=== PATIENT | male | born 1990 | race Two or more races ===

== ENCOUNTER 2023-08-16 09:33 | Outpatient (AMB) | payer OTHER, SELFPAY ==
[2023-08-16 09:30] VITALS: BP 108/70; PULSE 59; RESP 14; TEMP 36.4; O2SAT 99; BMI 28.7
--- NOTE | 2023-08-16 09:30 | MHC.PC.OV ---
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 Accompanied by: Self / Same As Patient Allergies No Known Allergies Allergy (Verified 08/16/23 09:49) Medication List - Last Reconciled 08/16/23 by Kelsea Hernandez CNP No Known Home Meds Tobacco use date assessed: 08/16/23 Dental Screening Dental Screen Date: 08/16/23 Did you have a dental visit in the last 12 months?: No Did you have a dental problem in the last 6 months where you did not have access to dental care?: No Was dental information given to patient?: Patient has dentist HPI HPI Comments History of Present Illness Details New patient Prior PCP:?Does not recall recall name of PCP/practice Last office visit/CPE: About 5 years Acute issue(s): HLD -He has never been on medications Bilateral knee pain -Intermittent pain to both knees for the past 2 years. He notes that his knee pain is likely due to playing volleyball. He states that he experienced cramping from taking Ibuprofen. He no longer takes any pain medication. He does not like taking medications Low sex drive -No erectile dysfunction Anxious -Attributes to work stressors and having low sex drive. Sleep is sometimes an issue. His symptoms have been ongoing for about 3 years. He has never been evaluated for anxiety and depression Small, painless lesion to left axilla -He notes that the lesion has been present for 5 years. He was told by his PCP the lesion is a cyst. No h/o imaging He notes that he exercises regularly. He has not been making healthy dietary choices PMHx: HLD SurgHx: Appendectomy FHx: Mom: HTN, CHF. Dad: HTN & DM SocHx: Smokes 10 cigarettes daily and has been smoking for over 5 years. Drinks alcohol occasionally. Smokes or chew cannabis almost every night PFSH Medical History (Updated 08/16/23 @ 12:53 by Kelsea Hernandez CNP) No pertinent past medical history Surgical History (Updated 08/16/23 @ 09:44 by DENY Leary) Hx of appendectomy Family History (Updated 08/16/23 @ 09:45 by Lynn Hoyt [facility]) Maternal Grandmother Asthma High blood pressure High cholesterol Diabetes Cardiovascular disease Social History Housing: House Patient Tobacco Use Status: Current everyday Tobacco user Tobacco use type: Cigarette Cigarette Packs Per Day: 0.5 Cigarettes Per Day: 10 Years Smoked: 10 e-Cigarette/Vaping Use: Never Used service: No Current occupational status: employed 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 1. Little interest or pleasure in doing things: more than half the days 2. Feeling down, depressed, or hopeless: not at all 3. Trouble falling or staying asleep, or sleeping too much: more than half the days 4. Feeling tired or having little energy: not at all 5. Poor appetite or overeating: more than half the days 6. Feeling bad about yourself - or that you are a failure or have let yourself or your family down: more than half the days 7. Trouble concentrating on things, such as reading the newspaper or watching television: more than half the days 8. Moving or speaking so slowly that other people could have noticed. Or the opposite - being so fidgety or restless that you have been moving around a lot more than usual: several days 9. Thoughts that you would be better off or of hurting yourself in some way: not at all Total score: 11 Depression Screening Interpretation: Positive Depression Screening Follow-up: Community Mental Health Worker F/U Depression Screening Done: Yes 15013 - PHQ-9 Billing: Yes Source: Developed by Drs. Kenneth Parks, Annemarie Shelley, Solomon Rutherford and colleagues, with an educational anita from [employer] Thrive Questionnaire Date Thrive assessed: 08/16/23 I am a: Patient What is your living situation today?: I have a steady place to live Within the past 12 months, did the food you bought not last and you didn't have the money to get more?: Never true Within the past 12 months, did you worry whether your food would run out before you got money to buy more?: Never true Do you have trouble paying for medicines?: No Do you have trouble getting transportation to medical appointments?: No Do you have trouble paying your heating and electricity bill?: No Do you have trouble taking care of your child, family member or friend?: No Do you have trouble with day-to-day activities such as bathing, preparing meals, shopping, managing finances, etc.?: No Are you currently unemployed and looking for a job?: No Are you interested in more education?: No Please select the resources that you would like help with: None Currently or been in a relationship where the following occur: No concerns reported THRIVE Score: 0 AUDIT C Alcohol Use Questionnaire (AUDIT-C) 1. How often do you have a drink containing alcohol?: Monthly or less 2. How many drinks containing alcohol do you have on a typical day when you are drinking?: 1 or 2 3. How often do you have six or more drinks on one occasion?: Never Total Score: 1 TESSA-7 AMB Questionnaire TESSA-7 Date TESSA - 7 assessed: 08/16/23 Feeling nervous, anxious, or on edge: 0 = Not at all Not being able to stop or control worryin = More than half the days Worrying too much about different things: 2 = More than half the days Trouble relaxin = Several days Being so restless that it is hard to sit still: 2 = More than half the days Becoming easily annoyed or irritable: 1 = Several days Feeling afraid as if something awful might happen: 1 = Several days Total TESSA-7 score (0-4 normal; 5-9 mild; 10-14 moderate; 15-21 severe): 9 Source: Developed by Drs. Kenneth Parks, Annemarie Shelley, Solomon Rutherford and colleagues, with an educational anita from [employer] TESSA-7 Assessment Billing TESSA-7 Assessment Tool: TESSA-7 Assessment 47311 Review of Systems Const Details: Denies chills, Denies fatigue, Denies fever(s), Denies headache(s) and Denies weakness HEENT Denies change in vision, Denies dizziness, Denies headache(s), Denies hearing loss, Denies nasal congestion, Denies sinus pain, Denies sinus pressure and Denies sore throat Card Denies chest pain, Denies lightheadedness, Denies dyspnea and Denies other (palpitations) Resp Denies cough, Denies dyspnea and Denies wheezing GI Denies abdominal pain, Denies melena, Denies hematochezia, Denies change in bowel habits, Denies dyspepsia and Denies nausea Denies hematuria and Denies dysuria Musc Denies abnormal gait, Denies myalgias, Denies arthralgias, Denies numbness and Denies tingling Skin/Breast Denies rash, Denies unusual bruising and Denies wounds Neuro Denies abnormal gait, Denies dizziness, Denies headache(s), Denies memory loss, Denies numbness, Denies Sensory deficit (Neuro), Denies tingling and Denies weakness Psych Denies anxiety, Denies depression and Denies memory loss Endo Denies cold intolerance, Denies fatigue, Denies heat intolerance, Denies polydipsia and Denies polyuria Kev/Lymph Denies easy bleeding and Denies easy bruising Aller/Immun Denies wheezing Physical exam (Primary Care) Vital Signs: Last Vital Signs Temp 97.6 F 08/16/23 09:30 Pulse 59 08/16/23 09:30 Resp 14 08/16/23 09:30 BP 108/70 08/16/23 09:30 Pulse Ox 99 08/16/23 09:30 Oxygen Delivery Method Room Air 08/16/23 09:30 BMI result Body Mass Index 28.7 Tobacco/Smoking Status: Tobacco use Status Tobacco use date assessed 08/16/23 08/16/23 09:41 Patient Tobacco Use Status Current everyday Tobacco 08/16/23 09:41 Tobacco use type Cigarette 08/16/23 09:41 e-Cigarette/Vaping Use Never Used 08/16/23 09:41 PHQ-9: PHQ-9 Score PHQ-9: Total score 11 08/16/23 12:48 Depression Screening Interpretation: Positive Depression Screening Follow-up: Community Mental Health Worker F/U Thrive Assessment: Date of Thrive Assessment Date Thrive assessed 08/16/23 08/16/23 09:41 Currently or been in a relationship where the following occur: No concerns reported Const Other: General: no acute distress, well developed, alert and awake Nutritional Appearance: well nourished Orientation/consciousness: patient oriented x3 HENMT Head: Yes normocephalic and Yes atraumatic Ears: hearing grossly normal bilaterally and TM's normal bilaterally General nose exam: Normal external nose present and Normal nares present Mouth: Normal oral and palatal mucosa present and moist mucous membranes Teeth and gingiva: dentition normal Throat: Yes oropharynx normal Eyes Pupils: Equal, round and reactive pupils present and Pupil accommodation reflex normal EOM: EOMs intact bilaterally Neck Neck: Yes normal visual inspection, Yes no lymphadenopathy and Yes trachea midline Thyroid: Thyroid normal Carotids: no bruits Lymphatic: no lymphadenopathy noted Chest Chest palpation & inspection: normal inspection of the chest Resp Effort & Inspection: normal respiratory effort Auscultation: clear to auscultation bilaterally Cardio Rate: regular rate Rhythm: regular rhythm Heart sounds: S1 normal heart sound present, S2 normal heart sound present, no gallops, no murmurs and no rubs Bruits: no abdominal aortic bruits and no carotid bruits GI Palpation (GI): No Abdominal aortic bruit present, Soft to palpation, nontender, No hepatosplenomegaly present and No Rebound tenderness present Auscultation: normal bowel sounds General: Yes no CVA tenderness Back/Spine/Pelvis Back: no CVA tenderness Cervical Spine: cervical ROM normal and No Cervical spine tenderness Thoracic/Lumbar Spine: thoraco-lumbar ROM normal, No pain with thoraco-lumbar ROM, No thoracic spinal tenderness and No lumbar spinal tenderness Skin General: warm and dry. Normal skin color. Normal skin turgor Lesions: Small, painless lump to the right axilla, likely sebaceous cyst Rashes: no rashes Trauma: no lacerations or abrasions Wounds: no wounds Nails: normal Neuro General: patient oriented x3, gait normal and CN's II-XI intact bilaterally Cranial nerves: Yes Equal, round and reactive pupils present Cognition (Neuro): normal cognition Gait exam (Neuro): Normal gait present Motor exam (neuro): 5/5 motor strength present throughout Sensory Exam: No Sensory deficit (Neuro) Deep tendon reflexes (DTR's): Right patellar reflex intensity grade: 2+ and Left patellar reflex intensity grade: 2+ Extrem General: Yes normal to inspection, No edema and No calf tenderness Psych Appearance: grossly normal Affect: normal affect Attitude: cooperative Thought process: Normal thought process present Assessment and Plan Assessment & Plan (1) Normal physical examination, routine: Code(s): Z00.00 - Encounter for general adult medical examination without abnormal findings Plan: No significant physical restrictions limitations noted Healthy diet and routine exercise encouraged Encouraged to follow-up with his dentist for annual dental care Advised to get lab work done and follow-up in 3 weeks for anxiety, depression, and labs review Return sooner with symptoms or concerns Verbalized understanding and agreed with treatment plan (2) Hyperlipidemia: Code(s): E78.5 - Hyperlipidemia, unspecified Plan: He has history of elevated triglyceride, total cholesterol, and LDL levels; and low HDL level He has never been on medications Will check lipid panel and make changes as needed Advised to limit foods high in saturated fat and avoid foods high in trans fat Routine exercise encouraged Verbalized understanding and agreed with the plan (3) Chronic pain of both knees: Code(s): M25.561 - Pain in right knee; M25.562 - Pain in left knee; G89.29 - Other chronic pain Plan: Intermittent pain to both knees. No overt injury or trauma ROM within normal limits Will check ESR lab May take Tylenol as needed for pain or discomfort Warm compresses encouraged Follow-up with worsening or new symptoms Verbalized understanding and agreed with treatment plan (4) Decreased libido without sexual dysfunction: Code(s): R68.82 - Decreased libido Plan: Will check testosterone level (5) Anxiety and depression: Code(s): F41.9 - Anxiety disorder, unspecified; F32.A - Depression, unspecified Plan: Attributes to work stressors and having low sex drive. Sleep is sometimes an issue. His symptoms have been ongoing for about 3 years. He has never been evaluated for anxiety and depression TESSA-7 and TESSA-7 scores revealed mild anxiety and moderate depression respectively He is willing to start psychotherapy. He met with the [facility] who will refer him to a therapist May start medication if his symptoms persist or worsens Routine exercise encouraged Follow-up with symptoms or concerns Verbalized understanding and agreed with the treatment plan (6) Lump of axilla: Code(s): R22.30 - Localized swelling, mass and lump, unspecified upper limb Plan: Small, painless lump to the left axilla, likely sebaceous cyst Ultrasound ordered (7) Ready to quit smoking: Code(s): F17.200 - Nicotine dependence, unspecified, uncomplicated Plan: He smokes 10 cigarettes daily and has been smoking for over 5 years Instructed on the health risks and complications of cigarette smoking and encouraged to quit He is willing to start medication treatment for smoking cessation as recommended Will start nicotine patch. Advised to use as prescribed. Instructed on the risks, benefits, and potential adverse reactions of the medication. Advised to avoid smoking while using the patch Follow-up with symptoms or concerns Verbalized understanding and agreed with the treatment plan (8) Laboratory tests ordered as part of a complete physical exam (CPE): Code(s): Z00.00 - Encounter for general adult medical examination without abnormal findings Plan: Fasting labs ordered as part of a complete physical exam. Advised to fast for at least 10 hours before getting labs drawn. May drink water Verbalized understanding and agreed with treatment plan. Orders: Orders Lipid Panel Today Z00.00 - Encounter for general adult medical examination without abnormal findings UA CC w/rflx Micro + Cult Today Z00.00 - Encounter for general adult medical examination without abnormal findings Testosterone, Total Today R68.82 - Decreased libido Comprehensive [place]. Panel Fast Today Z00.00 - Encounter for general adult medical examination without abnormal findings Complete Blood Count Auto Diff Today Z00.00 - Encounter for general adult medical examination without abnormal findings TSH reflex Free T4 Today Z00.00 - Encounter for general adult medical examination without abnormal findings Erythrocyte Sedimentation Rate Today G89.29 - Other chronic pain, M25.561 - Pain in right knee, M25.562 - Pain in left knee US soft tiss head and/or neck Today R22.30 - Localized swelling, mass and lump, unspecified upper limb Medications: New nicotine transdermally daily; Apply 14 mg patch q.d. x6 weeks, then apply 7 mg patch q.d. x2 weeks: Info: Stop cigarette use at treatment onset 28 ea 0RF Coding Level of Care Code New Pt Level 4 (83934) New Pt Prev Care 18-39yr([id number] Diagnoses Normal physical examination, routine Z00.00 Hyperlipidemia E78.5 Chronic pain of both knees M25.561; M25.562; G89.29 Decreased libido without sexual dysfunction R68.82 Anxiety and depression F41.9; F32.A Lump of axilla R22.30 Ready to quit smoking F17.200 Laboratory tests ordered as part of a complete physical exam (CPE) Z00.00 Additional Codes TESSA-7 Assessment Billing - TESSA-7 Assessment Tool: TESSA-7 Assessment 46612 ([id number])
== END 2023-08-16 10:28 | disposition home or self-care (01) ==
PROVIDERS: Visit Provider Nurse Practitioner Family
DX: Z00.00 Encounter for general adult medical examination without abnormal findings (principal); E78.5 Hyperlipidemia, unspecified; M25.561 Pain in right knee; M25.562 Pain in left knee; G89.29 Other chronic pain; R68.82 Decreased libido; F41.9 Anxiety disorder, unspecified; F32.A Depression, unspecified; R22.30 Localized swelling, mass and lump, unspecified upper limb; F17.200 Nicotine dependence, unspecified, uncomplicated
CPT/HCPCS: 99204; 99385

== ENCOUNTER 2023-08-17 11:10 | Outpatient (REF) | payer OTHER, SELFPAY ==
[2023-08-17 11:38] LABS: MANUAL DIFF FLAG NO
[2023-08-17 12:12] LABS: Basophils Percent Auto 0.4 % (0-2); Eosinophils Absolute Auto 0.2 X10*3/uL (0.0-0.4); Eosinophils Percent Auto 2.5 % (0-4); Hematocrit 42.3 % (42.0-52.0); Hemoglobin 14.6 g/dl (14.0-18.0); Imm Gran Abs Auto 0.03 X10*3/uL (0.00-0.03); Imm Gran Pct Auto 0.4 % (0.0-0.4); Mean Corpuscular HGB Conc 34.5 g/dl (31.0-36.0); Mean Corpuscular Hemoglobin 31.1 pg (27.0-33.0); Mean Platelet Volume 11.3 fL (9.4-12.4); Monocytes Absolute Auto 0.3 X10*3/uL (0.1-1.2); Monocytes Percent Auto 4.7 % (2-11); Neutrophils Absolute Auto 3.7 x10*3/uL (2.0-8.3); Platelet Count 217 X10*3/uL (160-400); Red Cell Distribution Width 13.2 % (11.0-16.0); White Blood Count 7.3 X10*3/uL (4.8-10.8)
[2023-08-17 12:49] LABS: Appearance Urine Clear; Color Urine Yellow; Glucose Urine UA Negative (Negative); Leukocyte Esterase Urine Negative (Negative); Nitrite Urine Negative (Negative); PH 5.5 (5.0-9.0); Specific Gravity - Urine 1.025 (1.005-1.025); Urine Blood Negative (Negative); Urine Ketones Negative (Negative); Urine Protein Negative (Neg-Trace)
[2023-08-17 12:52] LABS: Erythrocyte Sedimentation Rate 2 MM/HR (0-15)
[2023-08-17 12:59] LABS: Alanine Aminotransferase 26 U/L (0-40); Albumin Level 4.6 g/dL (3.5-5.0); Alkaline Phosphatase 56 U/L (39-117); Anion Gap 11 (12-20); Aspartate Amino Transferase 11 U/L (5-37); Bilirubin Total 0.8 mg/dL (0.0-1.0); Blood Urea Nitrogen 16 mg/dL (9-16); Calcium 9.6 mg/dL (8.4-10.2); Carbon Dioxide 26 mmol/L (22-29); Chloride 106 mmol/L (96-108); Cholesterol 221 mg/dL (<200); Estimated Glomerular Filt Rate > 60; Glucose Fasting 99 mg/dL (60-99); HDL Cholesterol 38 mg/dL (>40); LDL Cholesterol Calculated 146 mg/dL (<100); Potassium 4.4 mmol/L (3.3-5.1); Sodium 139 mmol/L (135-145); Total Protein 7.6 g/dL (6.5-8.0); Triglycerides 188 mg/dL (<150)
[2023-08-17 13:00] LABS: TSH reflex Free T4 0.68 uIU/mL (0.32-4.0)
[2023-08-21 14:18] LABS: Testosterone, Total 422 ng/dL (250-1100)
== END 2023-08-17 11:11 | disposition home or self-care (01) ==
LOC: HO.LAB 11:10
PROVIDERS: PCP Nurse Practitioner Family; Visit Provider Nurse Practitioner Family
DX: Z00.00 Encounter for general adult medical examination without abnormal findings (principal); R68.82 Decreased libido; M25.561 Pain in right knee; M25.562 Pain in left knee; G89.29 Other chronic pain
CPT/HCPCS: 36415; 80053; 80061; 81003; 84403; 84443; 85025; 85652

== ENCOUNTER 2023-09-06 12:47 | Outpatient (REF) | payer OTHER, SELFPAY ==
--- NOTE | ~2023-09-06 | US_ITS ---
EXAMINATION: US EXTREMITY, NONVASCULAR CLINICAL INFORMATION: Localized swelling, mass and lump upper limb, left axilla. COMPARISON: None available. TECHNIQUE: Targeted ultrasound images were obtained by the mower sharpener of the area of concern as indicated by the patient in the left axilla. Radiologist was not in attendance. Images were later provided for interpretation. FINDINGS: A 1.3 x 0.7 x 0.9 cm complex, hypoechoic lesion with well-circumscribed hol[place] and no demonstrable internal vascularity is identified in the superficial soft tissues of the area of concern indicated by the patient in the left axilla. US/US extremity nonvascular IMPRESSION: A 1.3 cm complex, hypoechoic lesion with well-circumscribed holland and no demonstrable internal vascularity is identified in the superficial soft tissues of the area of concern indicated by the patient in the left axilla. Correlation with clinical exam recommended to determine further management.
== END 2023-09-06 12:48 | disposition home or self-care (01) ==
LOC: HO.US 12:47
PROVIDERS: PCP Nurse Practitioner Family; Visit Provider Nurse Practitioner Family
DX: R22.30 Localized swelling, mass and lump, unspecified upper limb (principal)
CPT/HCPCS: 76882

== ENCOUNTER 2023-09-07 11:33 | Outpatient (AMB) | payer OTHER, SELFPAY ==
--- NOTE | 2023-09-07 11:35 | A.OFFPC_ITS ---
Vital Signs 09/07/23 11:40 Height 5 ft 5 in Weight 176 lb 2 oz BMI 29.3 BP 110/78 Blood Pressure Location Lt brachial Position Sitting Respiration 16 Pulse 62 Pulse Source Pulse Oximeter Temp 97.7 F Temp Source Oral Pulse Oximetry (%) 98 Oxygen Delivery Method Room Air Intake Visit Reasons: 3 wks anxiety, depression, labs review Intake Note: patient here for 3 weeks follow on anxiety, depression and labs. 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 x6 weeks, then apply 7 mg patch q.d. x2 weeks: Info: Stop cigarette use at treatment onset Tobacco use date assessed: 09/07/23 Dental Screening Dental Screen Date: 09/07/23 Did you have a dental visit in the last 12 months?: No Did you have a dental problem in the last 6 months where you did not have access to dental care?: No Was dental information given to patient?: No (patient has a dentist) HPI HPI Comments History of Present Illness Details 33-year-old male presents for anxiety, d epression, and recent labs review follow-up He has not started to use nicotine because he was on vacation but plans to start the medication soon He notes that he just returned from vacation. He reports improved anxiety and depressive symptoms which he attributes to recent vacation and end of year at his work. He attributes most of his stress to work demands. He states that he was recently given a contact to connect with a therapist He notes that he eats fast foods every day No acute symptoms [facility] Medical History (Updated 08/16/23 @ 12:53 by Kelsea Hernandez CNP) No pertinent past medical history Surgical History (Updated 08/16/23 @ 09:44 by DENY Leary) Hx of appendectomy Family History (Updated 08/16/23 @ 09:45 by DENY Leary) Maternal Grandmother Asthma High blood pressure High cholesterol Diabetes Cardiovascular disease Social History Housing: House Patient Tobacco Use Status: Current everyday Tobacco user Tobacco use type: Cigarette Cigarette Packs Per Day: 0.5 Cigarettes Per Day: 10 Years Smoked: 10 e-Cigarette/Vaping Use: Never Used service: No Current occupational status: employed 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 1. Little interest or pleasure in doing things: nearly every day 2. Feeling down, depressed, or hopeless: more than half the days 3. Trouble falling or staying asleep, or sleeping too much: more than half the days 4. Feeling tired or having little energy: more than half the days 5. Poor appetite or overeating: not at all 6. Feeling bad about yourself - or that you are a failure or have let yourself or your family down: several days 7. Trouble concentrating on things, such as reading the newspaper or watching television: more than half the days 8. Moving or speaking so slowly that other people could have noticed. Or the opposite - being so fidgety or restless that you have been moving around a lot more than usual: not at all 9. Thoughts that you would be better off or of hurting yourself in some way: not at all Total score: 12 Depression Screening Interpretation: Positive Depression Screening Follow-up: Existing condition Depression Screening Done: Yes 85292 - PHQ-9 Billing: Yes Source: Developed by Drs. Kenneth Parks, Annemarie Shelley, Solomon Rutherford and colleagues, with an educational anita from [email or web address]. Thrive Questionnaire Date Thrive assessed: 08/16/23 AUDIT C Alcohol Use Questionnaire (AUDIT-C) 1. How often do you have a drink containing alcohol?: Monthly or less 2. How many drinks containing alcohol do you have on a typical day when you are drinking?: 1 or 2 3. How often do you have six or more drinks on one occasion?: Never Total Score: 1 Score Reviewed/Action Taken: Yes TESSA-7 AMB Questionnaire TESSA-7 Date TESSA - 7 assessed: 09/07/23 Feeling nervous, anxious, or on edge: 1 = Several days Not being able to stop or control worryin = More than half the days Worrying too much about different things: 2 = More than half the days Trouble relaxin = Several days Being so restless that it is hard to sit still: 2 = More than half the days Becoming easily annoyed or irritable: 2 = More than half the days Feeling afraid as if something awful might happen: 1 = Several days Total TESSA-7 score (0-4 normal; 5-9 mild; 10-14 moderate; 15-21 severe): 11 Source: Developed by Drs. Kenneth Parks, Annemarie Shelley, Solomon Rutherford and colleagues, with an educational anita from [email or web address]. TESSA-7 Assessment Billing TESSA-7 Assessment Tool: TESSA-7 Assessment 78209 Review of Systems Const Details: Const Denies chills, Denies fatigue, Denies fever(s), Denies headache(s) and Denies weakness ENT Denies dizziness and Denies headache(s) Card Denies chest pain, Denies lightheadedness, Denies dyspnea and Denies other (Palpitations) Resp Denies cough, Denies dyspnea, Denies wheezing and Denies other ( shortness of breath) GI Denies abdominal pain, Denies melena, Denies hematochezia, Denies change in bowel habits, Denies dyspepsia and Denies nausea Denies hematuria and Denies dysuria Musc Denies abnormal gait, Denies myalgias, Denies arthralgias, Denies numbness and Denies tingling Skin/Breast Denies rash, Denies unusual bruising and Denies wounds Neuro Denies abnormal gait, Denies dizziness, Denies headache(s), Denies memory loss, Denies numbness, Denies Sensory deficit (Neuro), Denies tingling and Denies weakness Psych Reports anxiety, Reports depression, Denies memory loss Endo Denies cold intolerance, Denies fatigue, Denies heat intolerance, Denies polydipsia and Denies polyuria Aller/Immun Denies wheezing Physical exam (Primary Care) Vital Signs: Last Vital Signs Temp 97.7 F 09/07/23 11:40 Pulse 62 09/07/23 11:40 Resp 16 09/07/23 11:40 BP 110/78 09/07/23 11:40 Pulse Ox 98 09/07/23 11:40 Oxygen Delivery Method Room Air 09/07/23 11:40 BMI result Body Mass Index 29.3 Tobacco/Smoking Status: Tobacco use Status Tobacco use date assessed 09/07/23 09/07/23 11:39 Patient Tobacco Use Status Current everyday Tobacco 09/07/23 11:39 Tobacco use type Cigarette 09/07/23 11:39 e-Cigarette/Vaping Use Never Used 09/07/23 11:39 PHQ-9: PHQ-9 Score PHQ-9: Total score 12 09/07/23 11:45 Depression Screening Interpretation: Positive Depression Screening Follow-up: Existing condition Thrive Assessment: Date of Thrive Assessment Date Thrive assessed 08/16/23 09/07/23 11:39 Const Other: General: no acute distress and well developed Nutritional Appearance: well nourished Orientation/consciousness: patient oriented x3 HENMT Head: Yes normocephalic and Yes atraumatic Eyes General: appearance normal, both eyes and all related structures Pupils: Equal, round and reactive pupils present EOM: EOMs intact bilaterally Resp Effort & Inspection: normal respiratory effort Auscultation: clear to auscultation bilaterally Cardio Rate: regular rate Rhythm: regular rhythm Heart sounds: S1 normal heart sound present, S2 normal heart sound present, no gallops, no murmurs and no rubs GI Palpation (GI): No Abdominal aortic bruit present, Soft to palpation, nontender, No hepatosplenomegaly present and No Rebound tenderness present Auscultation: normal bowel sounds General: Yes no CVA tenderness Back/Spine/Pelvis Back: no CVA tenderness Cervical Spine: cervical ROM normal and No Cervical spine tenderness Thoracic/Lumbar Spine: thoraco-lumbar ROM normal, No pain with thoraco-lumbar ROM, No thoracic spinal tenderness and No lumbar spinal tenderness Extrem General: Yes normal to inspection, No edema and No calf tenderness Skin General: warm and dry. Normal skin color. Normal skin turgor Neuro General: patient oriented x3, gait normal and no focal neuro deficit Cranial nerves: Yes Equal, round and reactive pupils present Cognition (Neuro): normal cognition Gait exam (Neuro): Normal gait present Sensory Exam: No Sensory deficit (Neuro) Psych Appearance: grossly normal Affect: normal affect Attitude: cooperative Thought process: Normal thought process present Assessment and Plan Assessment & Plan (1) Anxiety and depression: Code(s): F41.9 - Anxiety disorder, unspecified; F32.A - Depression, unspecified Plan: Reports improved anxiety and depressive symptoms since he got back from vacation and ended his work year PHQ-9 and TESSA-7 scores revealed moderate depression and anxiety Advised to contact a therapist as planned Routine exercise encouraged encouraged Follow-up in 2 months or sooner with worsening or new symptoms Verbalized understanding and agreed with treatment plan (2) Hyperlipidemia: Code(s): E78.5 - Hyperlipidemia, unspecified Plan: Recent labs reviewed with the patient. Unremarkable findings except for elevated triglycerides, total cholesterol, and LDL levels, 188, 221, and 146 respectively; HDL is slightly low, 38 Advised to limit foods high in saturated fat and avoid foods high in trans fat Routine exercise encouraged Advised to fast for 10-12 hours, may drink water only, and get lipid panel blood work done a few days before his next visit Follow-up in 2 months Verbalized understanding and agreed with the treatment plan (3) Ready to quit smoking: Code(s): F17.200 - Nicotine dependence, unspecified, uncomplicated Plan: He has not started to use nicotine because he was on vacation but plans to start the medication soon Smoking cessation encouraged Advised to start nicotine patch as prescribed Follow-up with symptoms or concerns Verbalized understanding and agreed with the plan (4) Lump of axilla: Code(s): R22.30 - Localized swelling, mass and lump, unspecified upper limb Plan: No acute symptoms He had ultrasound yesterday but pending results Orders: Orders Lipid Panel 2 Months E78.5 - Hyperlipidemia, unspecified Coding Level of Care Code Est Pt Level 4 (40209) Complex EM visit Add On G2211 Diagnoses Anxiety and depression F41.9; F32.A Hyperlipidemia E78.5 Ready to quit smoking F17.200 Lump of axilla R22.30 Additional Codes TESSA-7 Assessment Billing - TESSA-7 Assessment Tool: TESSA-7 Assessment 05276 ([id number])
[2023-09-07 11:40] VITALS: BP 110/78; PULSE 62; RESP 16; TEMP 36.5; O2SAT 98; BMI 29.3
== END 2023-09-07 12:16 | disposition home or self-care (01) ==
PROVIDERS: Visit Provider Nurse Practitioner Family
DX: E78.5 Hyperlipidemia, unspecified (principal); F41.9 Anxiety disorder, unspecified; F32.A Depression, unspecified; F17.210 Nicotine dependence, cigarettes, uncomplicated; R22.30 Localized swelling, mass and lump, unspecified upper limb
CPT/HCPCS: 99214

== ENCOUNTER 2023-11-15 12:23 | Outpatient (REF) | payer OTHER, SELFPAY ==
[2023-11-15 14:10] LABS: Cholesterol 224 mg/dL (<200); HDL Cholesterol 38 mg/dL (>40); LDL Cholesterol Calculated 147 mg/dL (<100); Triglycerides 197 mg/dL (<150)
[2023-11-16 08:44] LABS: HBc Num1 0.03 S/CO (0.00-0.79); HIV AB/AG Nonreactive (Nonreactive); HIV Num 1 0.06 S/CO (0.00-0.99); Hepatitis B Core Antibody Nonreactive (Nonreactive); Hepatitis B Surface Antigen Negative (Negative); ~HepC Num1 0.06 S/CO (0.00-0.79); ~Hepatitis B Surface Antibody REACTIVE (Nonreactive); ~Hepatitis C Antibody Nonreactive (Nonreactive)
[2023-11-16 08:53] LABS: Syphilis Screen Nonreactive (Nonreactive)
== END 2023-11-15 12:24 | disposition home or self-care (01) ==
LOC: HO.LAB 12:23
PROVIDERS: PCP Nurse Practitioner Family; Visit Provider Nurse Practitioner Family
DX: Z11.3 Encounter for screening for infections with a predominantly sexual mode of transmission (principal); E78.5 Hyperlipidemia, unspecified
CPT/HCPCS: 36415; 80061; 86704; 86706; 86780; 86803; 87340; 87389

== ENCOUNTER 2023-11-16 11:24 | Outpatient (AMB) | payer OTHER, SELFPAY ==
--- NOTE | 2023-11-16 11:33 | A.OFFPC_ITS ---
Vital Signs 11/16/23 11:38 Height 5 ft 5 in Weight 182 lb BMI 30.3 BP 118/68 Blood Pressure Location Rt brachial Position Sitting Respiration 14 Pulse 62 Pulse Source Pulse Oximeter Temp 97.6 F Temp Source Oral Pulse Oximetry (%) 98 Oxygen Delivery Method Room Air Intake Visit Reasons: mos HLD, anxiety, depression Intake Note: Patient here for follow up on anxiety and depression, also patient states that the cyst on his left under arm drain a week ago. Allergies No Known Allergies Allergy (Verified 11/16/23 11:38) Tobacco use date assessed: 09/07/23 Dental Screening Dental Screen Date: 11/16/23 Did you have a dental visit in the last 12 months?: Yes Did you have a dental problem in the last 6 months where you did not have access to dental care?: No Was dental information given to patient?: Patient has dentist HPI HPI Comments History of Present Illness Details 33-year-old male presents for anxiety, d epression, and hyperlipidemia follow-up He notes that he has been making healthy dietary changes; he has cut done on cheese and meat; he has also been cooking more and eating out less. 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 He did not call to make an appointment with a therapist He notes that the lesion to his left axilla started draining purulent drainage last week. No pain to the area. 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 1. Little interest or pleasure in doing things: more than half the days 2. Feeling down, depressed, or hopeless: several days 3. Trouble falling or staying asleep, or sleeping too much: nearly every day 4. Feeling tired or having little energy: nearly every day 5. Poor appetite or overeating: nearly every day 6. Feeling bad about yourself - or that you are a failure or have let yourself or your family down: several days 7. Trouble concentrating on things, such as reading the newspaper or watching television: more than half the days 8. Moving or speaking so slowly that other people could have noticed. Or the opposite - being so fidgety or restless that you have been moving around a lot more than usual: not at all 9. Thoughts that you would be better off or of hurting yourself in some way: not at all Total score: 15 Depression Screening Interpretation: Positive Depression Screening Follow-up: Existing condition and Declines treatment Depression Screening Done: Yes 68302 - PHQ-9 Billing: Yes Source: Developed by Drs. Kenneth Parks, Annemarie Shelley, Solomon Rutherford and colleagues, with an educational anita from [employer]. Thrive Questionnaire Date Thrive assessed: 08/16/23 TESSA-7 AMB Questionnaire TESSA-7 Date TESSA - 7 assessed: 11/16/23 Feeling nervous, anxious, or on edge: 1 = Several days Not being able to stop or control worryin = Several days Worrying too much about different things: 2 = More than half the days Trouble relaxin = Several days Being so restless that it is hard to sit still: 1 = Several days Becoming easily annoyed or irritable: 2 = More than half the days Feeling afraid as if something awful might happen: 0 = Not at all Total TESSA-7 score (0-4 normal; 5-9 mild; 10-14 moderate; 15-21 severe): 8 Source: Developed by Drs. Kenneth Parks, Annemarie Shelley, Solomon Rutherford and colleagues, with an educational anita from [employer]. TESSA-7 Assessment Billing TESSA-7 Assessment Tool: TESSA-7 Assessment 64581 Review of Systems Const Details: Const Denies chills, Denies fatigue, Denies fever(s), Denies headache(s) and Denies weakness ENT Denies dizziness and Denies headache(s) Card Denies chest pain, Denies lightheadedness, Denies dyspnea and Denies other (Palpitations) Resp Denies cough, Denies dyspnea, Denies wheezing and Denies other ( shortness of breath) GI Denies abdominal pain, Denies melena, Denies hematochezia, Denies change in bowel habits, Denies dyspepsia and Denies nausea Denies hematuria and Denies dysuria Musc Denies abnormal gait, Denies myalgias, Denies arthralgias, Denies numbness and Denies tingling Skin/Breast Denies rash, Denies unusual bruising and Denies wounds Neuro Denies abnormal gait, Denies dizziness, Denies headache(s), Denies memory loss, Denies numbness, Denies Sensory deficit (Neuro), Denies tingling and Denies weakness Psych Denies anxiety, Denies depression, Denies memory loss Endo Denies cold intolerance, Denies fatigue, Denies heat intolerance, Denies polydipsia and Denies polyuria Aller/Immun Denies wheezing Physical exam (Primary Care) Vital Signs: Last Vital Signs Temp 97.6 F 11/16/23 11:38 Pulse 62 11/16/23 11:38 Resp 14 11/16/23 11:38 BP 118/68 11/16/23 11:38 Pulse Ox 98 11/16/23 11:38 Oxygen Delivery Method Room Air 11/16/23 11:38 BMI result Body Mass Index 30.3 Tobacco/Smoking Status: Tobacco use Status Tobacco use date assessed 09/07/23 11/16/23 11:34 Patient Tobacco Use Status Current everyday Tobacco 11/16/23 11:34 Tobacco use type Cigarette 11/16/23 11:34 e-Cigarette/Vaping Use Never Used 11/16/23 11:34 PHQ-9: PHQ-9 Score PHQ-9: Total score 15 11/16/23 11:41 Depression Screening Interpretation: Positive Depression Screening Follow-up: Existing condition and Declines treatment Thrive Assessment: Date of Thrive Assessment Date Thrive assessed 08/16/23 11/16/23 11:34 Const Other: General: no acute distress and well developed Nutritional Appearance: well nourished Orientation/consciousness: patient oriented x3 HENMT Head: Yes normocephalic and Yes atraumatic Eyes General: appearance normal, both eyes and all related structures Pupils: Equal, round and reactive pupils present EOM: EOMs intact bilaterally Resp Effort & Inspection: normal respiratory effort Auscultation: clear to auscultation bilaterally Cardio Rate: regular rate Rhythm: regular rhythm Heart sounds: S1 normal heart sound present, S2 normal heart sound present, no gallops, no murmurs and no rubs GI Palpation (GI): No Abdominal aortic bruit present, Soft to palpation, nontender, No hepatosplenomegaly present and No Rebound tenderness present Auscultation: normal bowel sounds General: Yes no CVA tenderness Back/Spine/Pelvis Back: no CVA tenderness Extrem General: Yes normal to inspection, No edema and No calf tenderness Skin General: warm and dry. Normal skin color. Normal skin turgor Neuro General: patient oriented x3, gait normal and no focal neuro deficit Cranial nerves: Yes Equal, round and reactive pupils present Cognition (Neuro): normal cognition Gait exam (Neuro): Normal gait present Sensory Exam: No Sensory deficit (Neuro) Psych Appearance: grossly normal Affect: normal affect Attitude: cooperative Thought process: Normal thought process present Coding Level of Care Code Tele New Pt Level 4 (40871) Diagnoses Anxiety and depression F41.9; F32.A Hyperlipidemia E78.5 Lump of axilla R22.30 Additional Codes TESSA-7 Assessment Billing - TESSA-7 Assessment Tool: TESSA-7 Assessment 24841 ([id number]) Assessment & Plan Assessment & Plan (1) Anxiety and depression: Code(s): F41.9 - Anxiety disorder, unspecified; F32.A - Depression, unspecified Category: Medical Plan: Reports anxiety and depressive symptoms which he attributes to work-related demands PHQ-9 and TESSA-7 scores revealed moderately severe depression and mild anxiety respectively Declines medication treatment at this time. He also declines psychotherapy referral Routine exercise encouraged Follow-up with worsening or new symptoms Verbalized understanding and agreed with the treatment plan (2) Hyperlipidemia: Code(s): E78.5 - Hyperlipidemia, unspecified Category: Medical Plan: Recent triglycerides, total cholesterol, and LDL levels are increased, 197, 224, and 147 respectively; HDL level is low, 38 Declines medication treatment at this time Request dietitian referral to help with dietary changes [place] [facility] [place] Advised to fast for 10-12 hours, may drink water only, and get lipid panel blood work done a few days before his next visit Follow-up in 3 months Verbalized understanding and agreed with the plan (3) Lump of axilla: Code(s): R22.30 - Localized swelling, mass and lump, unspecified upper limb Category: Medical Plan: Large mass with slightly red head to the left axilla; small amount of purulent drainage expressed; no tenderness to palpation Warm compresses encouraged Referred to general surgery Follow-up as needed Verbalized understanding and agreed with the plan Orders: Referrals General Surgery Referral R22.30 - Localized swelling, mass and lump, unspecified upper limb Nutrition/Dietitian Referral E78.5 - Hyperlipidemia, unspecified
[2023-11-16 11:38] VITALS: BP 118/68; PULSE 62; RESP 14; TEMP 36.4; O2SAT 98; BMI 30.3
== END 2023-11-16 12:12 | disposition home or self-care (01) ==
PROVIDERS: PCP Nurse Practitioner Family; Visit Provider Nurse Practitioner Family
DX: F41.9 Anxiety disorder, unspecified (principal); F32.A Depression, unspecified; E78.5 Hyperlipidemia, unspecified; R22.30 Localized swelling, mass and lump, unspecified upper limb

== ENCOUNTER → 2023-11-16 11:24 | Outpatient (BNVA) | payer OTHER, SELFPAY | PROVIDERS: PCP Nurse Practitioner Family; Visit Provider Nurse Practitioner Family | DX: F41.9 Anxiety disorder, unspecified (principal); F32.A Depression, unspecified; E78.5 Hyperlipidemia, unspecified; R22.32 Localized swelling, mass and lump, left upper limb | CPT/HCPCS: 96127 ==

== ENCOUNTER 2023-12-06 08:29 | Outpatient (REF) | payer OTHER, SELFPAY | END 2023-12-06 08:30 | disposition home or self-care (01) | LOC: HO.LNP 08:29 | PROVIDERS: PCP Nurse Practitioner Family; Referring Provider Nurse Practitioner Family; Visit Provider Surgery | DX: L72.0 Epidermal cyst (principal); E78.5 Hyperlipidemia, unspecified; Z71.3 Dietary counseling and surveillance | CPT/HCPCS: 11403; 88304; 97802 ==

== ENCOUNTER 2023-12-06 08:29 | Outpatient (AMB) | payer OTHER, SELFPAY ==
--- NOTE | 2023-12-06 08:36 | MHC.OFFVIS ---
Vital Signs 12/06/23 08:41 Height 5 ft 5 in Weight 178 lb BMI 29.6 BP 127/63 Blood Pressure Location Rt brachial Position Sitting Pulse 57 Intake Visit Reasons: Cyst~ Under Lt arm Intake Note: Patient referred by pcp Dr. Hernandez for cyst under left arm. Present for 3-4yrs. Patient c/o: started oozing 1m ago. Denies pain. 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 x6 weeks, then apply 7 mg patch q.d. x2 weeks: Info: Stop cigarette use at treatment onset HPI Comments Details: Patient presents with a 3 year history of a symptomatic cyst involving his left axilla. It is increasing in size, becoming more symptomatic. He would like to have removed. He has no such lesions elsewhere. Chart was reviewed and patient evaluate [facility] Medical History (Updated 12/06/23 @ 08:41 by COLEEN Rowell) Appendix perforation No pertinent past medical history Surgical History (Updated 12/06/23 @ 09:02 by Jon Dale MD) Hx of appendectomy Family History Maternal Grandmother Asthma High blood pressure High cholesterol Diabetes Cardiovascular disease Social History Housing: House Patient Tobacco Use Status: Current everyday Tobacco user Tobacco use type: Cigarette Cigarette Packs Per Day: 0.5 Cigarettes Per Day: 10 Years Smoked: 10 e-Cigarette/Vaping Use: Never Used service: No Current occupational status: employed 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 All questions answered. Consent signed. After appropriate positioning, patient underwent 1% lidocaine and Betadine prep and a transverse by elliptical incision encompassing the cyst in question with dimensions as described above (3 x 2 cm) was uneventfully excised. Specimen sent to pathology. Wound was irrigated, secured hemostasis, and closed using running subcuticular 3-0 Vicryl suture followed by Steri-Strips and sterile dressings. Patient tolerated procedure well. 30613-blknu/arms/legs 2.1-3cm Procedure code (CPT) selection complete Office Meds lidocaine 1 %-epinephrine 1:100,000 injection solution Performing Provider: Jon Dale MD [place] [facility] [place] [facility] Administered by: Jon Dale MD on 12/06/23 09:01 Dose Route Admin Location Dispensed Lot Number Expiration Date [employer]DC [employer] Hand 10 mL Infiltration 10 mL Assessment & Plan Assessment & Plan (1) Sebaceous cyst of axilla: Code(s): L72.3 - Sebaceous cyst Category: Surgical Plan: Patient was been given local instructions including isolated wound periodically, may shower in 2 days removing only outside dressing leaving Steri-Strips intact, Tylenol and Motrin p.r.n. pain, and patient should avoid strenuous activities and he will see me in 1 week's time or p.r.n.. Orders: Orders AMB Excision Today L72.3 - Sebaceous cyst Medications: New lidocaine-epinephrine 1 %-1:100,000 10 mL Infiltration ONCE 30 mL 0RF L72.3 - Sebaceous cyst Coding Level of Care Code New Pt Level 5 (31835) Diagnoses Sebaceous cyst of axilla L72.3 CPT Codes Trunk/Arms/Legs - CPT: 03903-urtei/arms/legs 2.1-3cm ([id number])
[2023-12-06 08:41] VITALS: BP 127/63; PULSE 57; BMI 29.6
== END 2023-12-06 08:45 | disposition home or self-care (01) ==
PROVIDERS: PCP Nurse Practitioner Family; Referring Provider Nurse Practitioner Family; Visit Provider Surgery
DX: L72.3 Sebaceous cyst (principal); L72.0 Epidermal cyst
CPT/HCPCS: 11403; 99203

== ENCOUNTER 2023-12-06 09:06 | Outpatient (AMB) | payer OTHER, SELFPAY ==
--- NOTE | 2023-12-06 09:39 | A.OFFVIS_ITS ---
VS Expanded 12/06/23 09:40 12/16/23 12:16 Height 5 ft 5 in 5 ft 5 in Weight 178 lb 178 lb BMI 29.6 29.6 Intake Visit Reasons: Hyperlipidemia/CONFIRMED Allergies No Known Allergies Allergy (Verified 12/13/23 09:25) Nutrition Presentation Details: Pt presents for MNT for high cholesterol Pt reports having no meal routine food frequency fish: not including ve x/wk fruits0-1/d dairy: 5+/d fried foods: 2-3 x/wk beverages: water/juices physical activity : daily life etoh/smoking: --- BS Monitoring Most Recent Diabetes Results: Cholesterol 224 mg/dL (<200) H 11/15/23 HDL Cholesterol 38 mg/dL (>40) L 11/15/23 Triglycerides 197 mg/dL (<150) H 11/15/23 Creatinine 1.06 mg/dL (0.5-1.4) 08/17/23 Blood Urea Nitrogen 16 mg/dL (9-16) 08/17/23 Sodium 139 mmol/L (135-145) 08/17/23 Potassium 4.4 mmol/L (3.3-5.1) 08/17/23 Chloride 106 mmol/L (96-108) 08/17/23 Carbon Dioxide 26 mmol/L (22-29) 08/17/23 Calcium 9.6 mg/dL (8.4-10.2) 08/17/23 AST 11 U/L (5-37) 08/17/23 ALT 26 U/L (0-40) 08/17/23 Total Protein 7.6 g/dL (6.5-8.0) 08/17/23 Albumin 4.6 g/dL (3.5-5.0) 08/17/23 UYI-Pgidvrq-Cp.Jeor Equation Height: 5 ft 5 in Weight: 178 lb Resting Metabolic Rate: 1676.18 Calculated Activity Level: Sedentary Calories Needed to Maintain Weight: 2010.42 Diagnosis Nutrition problem #1: food nutri know defi As related to (etiology) #1: diagnosis As evidenced by (sign/symptom) #1: knowledge deficit of diet PFSH Medical History (Updated 12/06/23 @ 08:41 by COLEEN Rowell) Appendix perforation No pertinent past medical history Surgical History (Updated 12/13/23 @ 09:27 by Jon Dale MD) Hx of appendectomy Family History Maternal Grandmother Asthma High blood pressure High cholesterol Diabetes Cardiovascular disease Social History Housing: House Patient Tobacco Use Status: Current everyday Tobacco user Tobacco use type: Cigarette Cigarette Packs Per Day: 0.5 Cigarettes Per Day: 10 Years Smoked: 10 e-Cigarette/Vaping Use: Never Used service: No Current occupational status: employed 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[employer] ([employer]) Current occupational exposures/hazards: No Cognitive needs: No Hearing needs: No Vision needs: Yes Assessment & Plan Assessment & Plan (1) Hyperlipidemia: Code(s): E78.5 - Hyperlipidemia, unspecified Category: Medical Plan: Wt: 81 Kg ( 12/08 ) Est kcal needs as per MSJ: 2000 (40% carb, 30% protein/fat) Est fluid needs as per 25-30 ml/d: 2400 Est prot per day as per 1 g/kg bw: 81 g Recommend fiber intake : 8-10 g per day and gradually increase to 25-28 g per day for women and 35-38 g for men or as tolerated Recommend sodium intake per day : less than 2300 mg Educated patient on: ( R = reviewed V = verbalizes understanding N/R = needs review N/A = not applicable * Food sources of carbohydrate, adequate serving sizes and its role in various health conditions: R * Differences between complex carbohydrates a simple carbohydrates, role of fiber in diet: R * Lean protein sources of foods: R * Differences between types of fats and role in diet (mono on saturated fat fatty acids, saturated fatty acids, trans fats): R * Food sources of sodium in salt and healthy modifications for heart health in kidney health: R V R/V * Vitamins and minerals: R V N/R * Healthy plate method concept: R V N/R * Physical activity: Benefits a precaution: R V N/R Patient Instructions: HAve water, fruits/herb infused flavored water in place of soda/juice drinks Choose baked/broiled/steamed in place of fried foods see 2100 liz meal plan low in fat and high fiber Coding Level of Care Code Nutr Indiv Intake (10212) Diagnoses Hyperlipidemia E78.5 Time Spent (min) 30
[2023-12-06 09:40] VITALS: BMI 29.6
[2023-12-16 12:16] VITALS: BMI 29.6
== END 2023-12-06 10:15 | disposition home or self-care (01) ==
PROVIDERS: PCP Nurse Practitioner Family; Visit Provider Dietitian, Registered
DX: E78.5 Hyperlipidemia, unspecified (principal)

== ENCOUNTER 2023-12-13 09:17 | Outpatient (AMB) | payer OTHER, SELFPAY ==
--- NOTE | 2023-12-13 09:19 | MHC.OFFVIS ---
Intake Visit Reasons: s/p excision Cyst~ Under Lt arm Intake Note: Patient here s/p cyst excision on Lt axilla. Reports incision healing well. Patient c/o: no concerns. Waist Presser Required: No Accompanied by: Self / Same As Patient Allergies No Known Allergies Allergy (Verified 12/13/23 09:25) HPI Comments Details: Patient has no wound issues or complaints. Pathology is benign. [facility] Medical History (Updated 12/06/23 @ 08:41 by COLEEN Rowell) Appendix perforation No pertinent past medical history Surgical History (Updated 12/13/23 @ 09:27 by Jon Dale MD) Hx of appendectomy Family History Maternal Grandmother Asthma High blood pressure High cholesterol Diabetes Cardiovascular disease Social History Housing: House Patient Tobacco Use Status: Current everyday Tobacco user Tobacco use type: Cigarette Cigarette Packs Per Day: 0.5 Cigarettes Per Day: 10 Years Smoked: 10 e-Cigarette/Vaping Use: Never Used service: No Current occupational status: employed 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 Patient was extruding a suture from the lateral aspect which was uneventfully removed. Patient tolerated this well. Bacitracin and dressing applied. Assessment & Plan Assessment & Plan (1) Postop check: Code(s): Z09 - Encounter for follow-up examination after completed treatment for conditions other than malignant neoplasm Category: Surgical Plan: Patient was been given local instructions, and otherwise follow-up p.r.n.. Coding Level of Care Code Global (93562) Diagnoses Postop check Z09
== END 2023-12-13 09:32 | disposition home or self-care (01) ==
PROVIDERS: PCP Nurse Practitioner Family; Visit Provider Surgery
DX: Z09 Encounter for follow-up examination after completed treatment for conditions other than malignant neoplasm (principal)
CPT/HCPCS: 99024

== ENCOUNTER → 2023-12-13 09:17 | Outpatient (BNVA) | payer OTHER, SELFPAY | PROVIDERS: PCP Nurse Practitioner Family; Visit Provider Surgery ==